=== PATIENT | female | born 1965 | race Caucasian/White ===

== ENCOUNTER 2023-01-05 22:38 | Emergency (ER) | payer OTHER, SELFPAY ==
--- NOTE | 2023-01-05 22:45 | ED.GENADULT ---
HPI - General Adult General Chief complaint: General Medical Stated complaint: SHAKING Time Seen by Provider: 01/05/23 22:45 Source: patient Mode of arrival: EMS Limitations: no limitations History of Present Illness HPI narrative: Patient alcoholic drinks vodka every day came from [facility] which she been there for last 4 days as she been shaking according to patient they were not giving her enough Ativan. Patient denies any history of DTs patient denies any nausea/vomiting no history of seizures in the past no psychiatric history Related Data Allergies Allergy/AdvReac Type Severity Reaction Status Date / Time acetaminophen [From Tylenol] Allergy Hives Verified 01/05/23 23:19 aspirin Allergy Anaphylaxis Verified 01/05/23 23:17 buprenorphine [From Suboxone] Allergy Swelling Verified 01/05/23 23:18 ibuprofen Allergy Hives Verified 01/05/23 23:19 naloxone [From Suboxone] Allergy Swelling Verified 01/05/23 23:18 naltrexone [From Vivitrol] Allergy Angioedema Verified 01/05/23 23:19 Review of Systems Review of Systems: Yes all other systems are reviewed and are negative PMFSH Social History Social History Advance Directives: No Advance Directives Information Provided: Yes Physical Exam ED Vital Signs: Vital Signs - 24 hr 01/05/23 22:48 01/06/23 00:21 01/06/23 01:51 Temperature 99.4 F Pulse Rate 97 91 Respiratory Rate 18 18 18 Blood Pressure 130/88 148/101 H Pulse Oximetry 95 95 Oxygen Delivery Method Room Air Room Air 01/06/23 02:48 01/06/23 05:12 Temperature 99.3 F 98.8 F Pulse Rate 89 78 Respiratory Rate 18 17 Blood Pressure 122/86 120/79 Pulse Oximetry 94 92 Oxygen Delivery Method Room Air Room Air BMI result Body Mass Index 21.1 Appearance: Alert. Oriented X3. No acute distress. Eyes: PERRLA, No Nystagmus ENT: Pharynx normal. Oral Mucosa moist Neck: Normal inspection. Neck supple. CVS: Normal heart rate and rhythm. Pulses normal. Respiratory: No respiratory distress. Equal air entry bilateral, no wheezing/rales/rhonchi Abdomen: Soft and nontender. Bowel sounds are present, no mass palpable, no CVA tenderness Skin: Skin warm and dry. Normal skin color. Normal skin turgor. Extremities: No lower extremity edema. No calf tenderness Neuro: Oriented X 3. No motor deficit. No sensory deficit.No cerebellar signs , cranial nerves II-XII intact tremors++ Medications Administered Discontinued Medications Generic Name Dose Route Start Last Admin Trade Name Darrenq PRN Reason Stop Dose Admin Sodium Chloride 1,000 mls @ 999 mls/hr 01/05/23 23:05 01/06/23 00:40 Ns IV 01/06/23 00:05 Infused .Q1H1M ONE Infusion Magnesium Sulfate 2 gm in 50 mls @ 100 mls/hr 01/06/23 04:48 01/06/23 04:58 Magnesium Sulfate/H2o IV 01/06/23 05:17 100 mls/hr ONCE ONE Administration Lorazepam 2 mg 01/05/23 23:05 01/05/23 23:32 Lorazepam 2 Mg/Ml Vial IVPUSH 01/05/23 23:06 2 mg ONCE ONE Administration Ondansetron HCl 4 mg 01/05/23 23:05 01/05/23 23:32 Ondansetron Hcl 4 Mg/2 Ml Vial IVPUSH 01/05/23 23:06 4 mg ONCE ONE Administration Medical Decision Making Medical Decision Making MDM Narrative: Patient with alcohol withdrawal CIWA scale of 10 improved after Ativan had a magnesium of 1.5 which was replaced. Patient clinically was in alcohol withdrawal medically cleared to go back to detox Lab Data [facility] Lab Attestation statement: I reviewed the patient's lab results. 01/05/23 23:26 01/05/23 23:26 Labs: Lab Results 01/05/23 01/05/23 Range/Units 23:26 23:26 WBC 8.3 (4.8-10.8) X10*3/uL RBC 3.48 L (4.60-5.80) X10*6/uL Hgb 11.5 L (14.0-18.0) g/dl Hct 34.4 L (42.0-52.0) % MCV 98.9 H (80.0-98.0) fL MCH 33.0 (27.0-33.0) pg MCHC 33.4 (31.0-36.0) g/dl RDW 12.5 (11.0-16.0) % Plt Count 206 (160-400) X10*3/uL MPV 9.1 L (9.4-12.4) fL Immature Gran % (Auto) 0.6 H (0.0-0.4) % Neut % (Auto) 78.1 H (45-73) % Lymph % (Auto) 10.1 L (20-40) % Stephenson % (Auto) 9.6 (2-11) % Eos % (Auto) 1.1 (0-4) % Baso % (Auto) 0.5 (0-2) % Lymph # (Auto) 0.8 L (1.2-4.9) X10*3/uL Stephenson # (Auto) 0.8 (0.1-1.2) X10*3/uL Eos # (Auto) 0.1 (0.0-0.4) X10*3/uL Baso # (Auto) 0.0 (0.0-0.2) X10*3/uL Abs Immat Gran (auto) 0.05 H (0.00-0.03) X10*3/uL Absolute Neuts (auto) 6.5 (2.0-8.3) x10*3/uL Absolute Nucleated RBC 0.000 (0.0-0.012) X10*3/uL Nucleated RBC % (auto) 0.0 (0.0-0.2) /100WBC Sodium 136 (135-145) mmol/L Potassium 4.9 (3.3-5.1) mmol/L Chloride 98 (96-108) mmol/L Carbon Dioxide 30 H (22-29) mmol/L Anion Gap 13 (12-20) BUN 15 (9-16) mg/dL Creatinine 0.89 (0.5-1.4) mg/dL Estim Creat Clear Calc 71.3 Estimated GFR > 60 Random Glucose 85 (60-115) mg/dL Calcium 9.4 (8.4-10.2) mg/dL Magnesium 1.5 L (1.6-2.6) mg/dL Total Bilirubin 0.4 (0.0-1.0) mg/dL AST 19 (5-37) U/L ALT 12 (0-40) U/L Alkaline Phosphatase 116 (39-117) U/L Total Protein 6.3 L (6.5-8.0) g/dL Albumin 3.9 (3.5-5.0) g/dL Ethyl Alcohol < 10 mg/dL Discharge Plan Discharge Clinical Impression: Alcohol withdrawal Patient Disposition: Xfer Other Transfer Details: To detox center Instructions: Alcohol Withdrawal (ED) Additional Instructions: Continue lorazepam according to CIWA scale patient medically cleared to be placed in detox
[2023-01-05 22:48] VITALS: BP 124/80; BP 130/88; PULSE 95; PULSE 97; RESP 18; TEMP 37.4; O2SAT 95; O2SAT 96; BMI 21.1
[2023-01-05 23:31] LABS: Basophils Percent Auto 0.5 % (0-2); Eosinophils Absolute Auto 0.1 X10*3/uL (0.0-0.4); Eosinophils Percent Auto 1.1 % (0-4); Hematocrit 34.4 % (42.0-52.0); Hemoglobin 11.5 g/dl (14.0-18.0); Imm Gran Abs Auto 0.05 X10*3/uL (0.00-0.03); Imm Gran Pct Auto 0.6 % (0.0-0.4); Lymphocytes Absolute Auto 0.8 X10*3/uL (1.2-4.9); Lymphocytes Percent Auto 10.1 % (20-40); MANUAL DIFF FLAG NO; Mean Corpuscular HGB Conc 33.4 g/dl (31.0-36.0); Mean Corpuscular Volume 98.9 fL (80.0-98.0); Mean Platelet Volume 9.1 fL (9.4-12.4); Monocytes Absolute Auto 0.8 X10*3/uL (0.1-1.2); Monocytes Percent Auto 9.6 % (2-11); Neutrophils Absolute Auto 6.5 x10*3/uL (2.0-8.3); Neutrophils Percent Auto 78.1 % (45-73); Platelet Count 206 X10*3/uL (160-400); Red Blood Count 3.48 X10*6/uL (4.60-5.80); Red Cell Distribution Width 12.5 % (11.0-16.0); White Blood Count 8.3 X10*3/uL (4.8-10.8)
[2023-01-05] MEDS: LORazepam 2 MG/ML VIAL IVPUSH (23:32)
[2023-01-05] MEDS: ondansetron HCL 4 MG/2 ML VIAL IVPUSH (23:32)
[2023-01-05] MEDS: 0.9 % Sodium Chloride 1,000 ML 999 ML IV (23:37)
[2023-01-05 23:48] LABS: Alanine Aminotransferase 12 U/L (0-40); Albumin Level 3.9 g/dL (3.5-5.0); Alkaline Phosphatase 116 U/L (39-117); Anion Gap 13 (12-20); Aspartate Amino Transferase 19 U/L (5-37); Bilirubin Total 0.4 mg/dL (0.0-1.0); Blood Urea Nitrogen 15 mg/dL (9-16); Calcium 9.4 mg/dL (8.4-10.2); Carbon Dioxide 30 mmol/L (22-29); Chloride 98 mmol/L (96-108); Creatinine Clr Calc Pharmacy 71.3; Estimated Glomerular Filt Rate > 60; Ethanol < 10 mg/dL; Glucose Random 85 mg/dL (60-115); Magnesium 1.5 mg/dL (1.6-2.6); Potassium 4.9 mmol/L (3.3-5.1); Sodium 136 mmol/L (135-145); Total Protein 6.3 g/dL (6.5-8.0)
[2023-01-06] VITALS (7 sets, daily range): BP systolic 108–148; BP diastolic 74–101; PULSE 70–91; RESP 16–20; TEMP 37.1–37.4; O2SAT 92–95
--- OUTSIDE RECORDS SUMMARY | 2023-01-06 00:31 | XMS_ITS | Continuity of Care Document ---
Author Name Unknown Organization [facility] Adult Address [address] [place] [address]- Care Team Providers Care Glove Operator Name Role Phone Shelley MCGEE, Alyssa Miranda Primary Care Physician Encounter [facility] [place] Date(s): 11/08/20 - 11/15/20 [facility] Adult [address] [place] [address]- Encounter Diagnosis Right shoulder pain(Discharge Diagnosis) - 11/08/20 Attending Physician: Alyssa Rosa NP Allergies, Adverse Reactions, Alerts Substance Reaction Severity Status penicillins hives Active sulfa drugs vomiting Active Dilaudid Active Tylenol Rash Active nonsteroidal anti-inflammatory agents tongue swells Active Adhesive Bandage Rash Active Suboxone suboxone Active TraMADol Hydrochloride ER 1 Active 1hives Immunizations Given and Recorded Vaccine Date Status Refusal Reason zoster vaccine, inactivated 06/14/19 Recorded Influenza Virus Vaccine (oldterm) 06/05/19 Recorde d pneumococcal 23-valent vaccine 10/19/18 Given influenza virus vaccine, inactivated 1 06/27/18 Gi iglesia influenza virus vaccine, inactivated 2 07/11/17 Gi iglesia influenza virus vaccine, inactivated 3 07/18/15 Re corded influenza virus vaccine, inactivated 4 07/20/11 Gi iglesia influenza virus vaccine, inactivated 08/27/10 Give n influenza virus vaccine, inactivated 5 07/12/09 Gi iglesia pneumococcal 13-valent vaccine 6 07/11/17 Given tetanus/diphtheria/pertussis, acel(Tdap) 12/21/13 Given diphtheria-tetanus toxoids (DT) 08/29/04 Given [facility] 3Location History: &[facility] 4[facility]: [facility] 5Admin Note: Left arm. - Dr. Griffin 6Admin Note: [facility] Medications cyclobenzaprine 5 mg oral tablet 1 tablet = 5 mg, By Mouth, 3 times a day, for 10 days, # 30 tablet, 0 Refills, Acute 11/18/20 11:28:00 EST, 11/08/20 11:28:00 EST, Tablet, [facility], Partial fill upon patient request if the prescription is for a schedule II opioid eve... Start Date: 11/08/20 Stop Date: 11/18/20 Status: Ordered methadone 5 mg/5 mL oral solution 30 mL = 30 mg, By Mouth, Daily, # 210 mL, 0 Refills, Maintenance, 12/01/18 15:49:03 EST Start Date: 12/01/18 Stop Date: 12/08/18 Status: Ordered Neurontin 600 mg oral tablet 2 tablet = 1,200 mg, By Mouth, 3 times a day, # 180 tablet, 6 Refills, Maintenance, 07/15/20 14:40:00 EDT, Tablet, [facility], 159, cm, 03/20/20 16:15:00 EDT, Height Start Date: 07/15/20 Stop Date: 02/10/21 Status: Ordered Nicotine 7 mg/24 hour patch 1 patch, Topically, Daily, # 30 patch, 2 Refills, Maintenance, 11/30/19 10:45:00 EST, Patch, [facility], 1 patch Topically Daily, 159, cm, 11/30/19 10:21:00 EST, Height Start Date: 11/30/19 Status: Ordered Problem List Condition Effective Dates Status Health Status Inform ant Anemia(Confirmed) Active Anxiety and depression(Confirmed) Active Childhood asthma(Confirmed) Active Fusion of spine of lumbar region(Confirmed) 10/22/05 Active Hernia, hiatal(Confirmed) Active H/o alcohol abuse(Confirmed) Active Hypercholesterolemia(Confirmed) Active Failed back syndrome, lumbosacral(Confirmed) Active Myofascial pain(Confirmed) Active Neck pain(Confirmed) Active Nephrolithiasis(Confirmed) Active Cervical radicular pain(Confirmed) Active Radicular pain of lumbosacra l region(Confirmed) Active S/P cervical spinal fusion(Confirmed) Active Substance abuse(Confirmed) Active Tobacco abuse(Confirmed) Active Urge Incontinence(Confirmed) Active Vitamin D deficiency(Confirmed) Active Diagnosis Diagnosis Type Effective Dates Health Status Cl inical Service Informant Right shoulder pain Discharge Diagnosis 11/08/20 Vital Signs Most recent to oldest [Reference Range]: 1 Height 159 cm (11/08/20 9:32 AM) Social History Social History Type Response Tobacco Use: 4 or less cigar ettes(less than 1/4 pack)/day in last 30 days. Sex
--- OUTSIDE RECORDS SUMMARY | 2023-01-06 00:31 | XMS_ITS | Continuity of Care Document ---
Author Name Unknown Organization [facility] Adult Address [address] [place] [address]- Care Team Providers Care Instrumentation Controls Engineer Name Role Phone Isabela [employer], Paola Monroe Primary Care Physician Encounter [facility] [place] Date(s): 12/12/20 - 01/11/21 [facility] Adult [address] [place] [address]- Attending Physician: Shelley MCGEE, Alyssa Miranda Allergies, Adverse Reactions, Alerts Substance Reaction Severity [...] 2[facility] 3Location History: [facility] 4[facility] Note: [facility] 5Admin Note: Left arm. - Dr. Griffin 6Admin Note: [facility] Medications methadone 5 mg/5 mL oral solution See Instructions, PRN as needed for pain, 85 mg once a day, 0 Refills, Maintenance, 01/09/21 13:23:00 EDT, Solution, Partial fill upon patient request if the prescription is for a schedule II opioid drug. Start Date: 01/09/21 Status: Ordered Neurontin 600 mg oral tablet 1 tablet = 600 mg, By Mouth, 3 times a day, # 1 tablet, 6 Refills, Maintenance, 07/15/20 14:40:00 EDT, Tablet, [facility], 159, cm, 03/20/20 16:15:00 EDT, Height Start Date: 07/15/20 Stop Date: 02/10/21 Status: Ordered Problem List Condition Effective Dates [...] Urge Incontinence(Confirmed) Active Vitamin D deficiency(Confirmed) Active Vital Signs Most recent to oldest [Reference Range]: 1 Height 159 cm (12/12/20 12:29 PM) Social History Social History Type Response Smoking Status 5-9 cigarettes (betw een 1/4 to 1/2 pack)/day in last 30 days entered on: 01/09/21 Sex
--- OUTSIDE RECORDS SUMMARY | 2023-01-06 00:31 | XMS_ITS | Continuity of Care Document ---
Author Name Unknown Organization [facility] Address [address] [place] [address]- Care Team Providers Care Bee Robber Name Role Phone Isabela MCGEE, Paola Monroe Primary Care Physician [place] [facility] [place] Date(s[place] 10/06/21 - 10/13/21 [facility] [address] [place] [address]- Encounter Diagnosis Suspected COVID-19 virus infection(Discharge Diagnosis) - 10/06/21 Viral URI(Discharge Diagnosis) - 10/06/21 Attending Physician: Not on Staff, Attending MD Referring Physician: Paola Mar NP Allergies, Adverse Reactions, Alerts Substance Reaction Severity Status penicillins hives Active sulfa drugs vomiting Active Dilaudid Active Tylenol Rash Active nonsteroidal anti-inflammatory agents tongue swells Active Adhesive Bandage Rash Active Suboxone suboxone Active TraMADol Hydrochloride ER 1 Active 1hives Immunizations Given and Recorded Vaccine Date Status Refusal Reason SARS-CoV-2 (COVID-19) Ad26 vaccine 03/07/21 Record ed influenza virus vaccine, inactivated 05/23/20 Benigno rded influenza virus vaccine, inactivated 1 06/27/18 Gi iglesia influenza virus vaccine, inactivated 2 07/11/17 Gi iglesia influenza virus vaccine, inactivated 3 07/18/15 Re corded influenza virus vaccine, inactivated 4 07/20/11 Gi iglesia influenza virus vaccine, inactivated 08/27/10 Give n influenza virus vaccine, inactivated 5 07/12/09 Gi iglesia zoster vaccine, inactivated 06/14/19 Recorded Influenza Virus Vaccine (oldterm) 06/05/19 Recorde d pneumococcal 23-valent vaccine 10/19/18 Given pneumococcal 13-valent vaccine 6 07/11/17 Given tetanus/diphtheria/pertussis, acel(Tdap) 12/21/13 Given diphtheria-tetanus toxoids (DT) 08/29/04 Given 1[facility] 4[facility] Note: [facility] 5Admin Note: Left arm. - Dr. Griffin 6Admin Note: [facility] Medications amLODIPine 5 mg oral tablet 5 mg, 1, tablet, By Mouth, Daily, # 90 tablet, Refills 0, Tot. Refills 0, Maintenance, 06/30/21 15:11:00 EDT, Route to Pharmacy Electronically, [facility], Partial fill upon patient request if the prescription is for a schedule II opioi... Start Date: 06/30/21 Status: Ordered methadone 5 mg/5 mL oral solution See Instructions, PRN as needed for pain, 85 mg once a day, 0 Refills, Maintenance, 01/09/21 13:23:00 EDT, Solution, Partial fill upon patient request if the prescription is for a schedule II opioid drug. Start Date: 01/09/21 Status: Ordered Neurontin 600 mg oral tablet 1 tablet = 600 mg, By Mouth, 3 times a day, # 90 tablet, 6 Refills, Maintenance, 05/15/21 15:50:00 EDT, Tablet, [facility], 159, cm, 05/15/21 15:47:00 EDT, Height Start Date: 05/15/21 Stop Date: 12/11/21 Status: Ordered Problem List Condition Effective Dates Status Health Status Inform ant Anemia(Confirmed) Active Anxiety and depression(Confirmed) Active Childhood asthma(Confirmed) Active Fusion of spine of lumbar region(Confirmed) 10/22/05 Active Hernia, hiatal(Confirmed) Active H/o alcohol abuse(Confirmed) Active Hypercholesterolemia(Confirmed) Active HTN (hypertension)(Confirmed) Active Failed back syndrome, lumbosacral(Confirmed) Active Mild depression(Confirmed) Active Myofascial pain(Confirmed) Active Neck pain(Confirmed) Active Nephrolithiasis(Confirmed) Active Cervical radicular pain(Confirmed) Active Radicular pain of lumbosacra l region(Confirmed) Active S/P cervical spinal fusion(Confirmed) Active Pain in right shoulder(Confirmed) Active Substance abuse(Confirmed) Active Tobacco abuse(Confirmed) Active Urge Incontinence(Confirmed) Active Vitamin D deficiency(Confirmed) Active Diagnosis Diagnosis Type Effective Dates Health Status Cl inical Service Informant Suspected COVID-19 virus infection Discharge Diagnosis 10/06/21 Viral URI Discharge Diagnosis 10/06/21 Social History Social History Type Response Smoking Status 5-9 cigarettes (betw een 1/4 to 1/2 pack)/day in last 30 days entered on: 01/09/21 Sex
--- OUTSIDE RECORDS SUMMARY | 2023-01-06 00:31 | XMS_ITS | Continuity of Care Document ---
Author Name Unknown Organization [facility] ter Address [address] [place] [address]- Care Team Providers Care Documentation Billing Clerk Name Role Phone Isabela MCGEE, Paola Monroe Primary Care Physician Encounter [facility] Date(s): 02/06/21 - 06/08/[address] [address] Attending Physician: Paola Mar NP Admitting Physician: Isabela MCGEE, Paola Monroe Referring Physician: Isabela MCGEE, Paola Monroe Allergies, Adverse Reactions, Alerts Substance Reaction Severity Status penicillins hives Active sulfa drugs vomiting Active Dilaudid Active Tylenol Rash Active Adhesive Bandage Rash Active Suboxone suboxone Active TraMADol Hydrochloride ER 1 Active nonsteroidal anti-inflammatory agents tongue swells Active 1hives Immunizations Given and Recorded Vaccine [...] 2[facility] 3[facility]: [facility] 4Admin Note: [facility] 5Admin Note: Left arm. - Dr. Girffin 6Admin Note: [facility] Medications amLODIPine 5 mg oral tablet 5 mg, 1, tablet, By Mouth, Daily, # 90 tablet, Refills 1, Tot. Refills 1, Maintenance, 05/15/21 15:49:00 EDT, Route to Pharmacy Electronically, [facility], Partial fill upon patient request if the prescription is for a schedule II opioi... Start Date: 05/15/21 Status: Ordered methadone 5 mg/5 mL oral [...] Maintenance, 05/15/21 15:50:00 EDT, Tablet, [facility], 159, cm, 05/15/21 15:47:00 EDT, Height Start Date: 05/15/21 Stop Date: 12/11/21 Status: Ordered Problem List Condition Effective Dates Status Health Status Inform ant Anemia(Confirmed) Active Anxiety and depression(Confirmed) Active Childhood asthma(Confirmed) Active Fusion of spine of lumbar region(Confirmed) 10/22/05 Active Hernia, hiatal(Confirmed) Active H/o alcohol abuse(Confirmed) Active Hypercholesterolemia(Confirmed) Active HTN (hypertension)(Confirmed) Active Failed back syndrome, lumbosacral(Confirmed) Active Myofascial pain(Confirmed) Active Neck pain(Confirmed) Active Nephrolithiasis(Confirmed) Active Cervical radicular pain(Confirmed) Active Radicular pain of lumbosacra l region(Confirmed) Active S/P cervical spinal fusion(Confirmed) Active Pain in right shoulder(Confirmed) Active Substance abuse(Confirmed) Active Tobacco abuse(Confirmed) Active Urge Incontinence(Confirmed) Active Vitamin D deficiency(Confirmed) Active Social History Social History Type Response Smoking Status 5-9 cigarettes (betw een 1/4 to 1/2 pack)/day in last 30 days entered on: 01/09/21 Sex
--- OUTSIDE RECORDS SUMMARY | 2023-01-06 00:31 | XMS_ITS | Continuity of Care Document ---
Author Name Unknown Organization [facility] Adult Address [address] [place] [address]- Care Team Providers Care Hazmat Tanker Driver Name Role Phone Isabela MCGEE, Paola Monroe Primary Care Physician Encounter [facility] Date(s): 07/17/21 - 08/16/21 [facility] [address] [place] [address]- Attending Physician: AdmModesta villavicencio Allergies, Adverse Reactions, Alerts Substance Reaction Severity [...] 2[facility] 3[facility] 4[facility] Note: [facility] 5Admin Note: Left arm. - Dr. Elias Peña Note: [facility] Medications amLODIPine 5 [...] Maintenance, 05/15/21 15:50:00 EDT, Tablet, [facility], 159, cm, 05/15/21 15:47:00 EDT, [...]
--- OUTSIDE RECORDS SUMMARY | 2023-01-06 00:31 | XMS_ITS | Continuity of Care Document ---
Author Name Unknown Organization [facility] Address [address] [place] [address]- Care Team Providers Care Plaster Form Maker Name Role Phone Alyssa Rosa NP Primary Care Physician Encounter [facility] [place] Date(s): 05/10/20 - 06/09/20 [facility] [address] [place] [address]- [facility] Allergies, Adverse Reactions, Alerts Substance Reaction Severity [...] 2Admin Note[facility] 3Location History: &[facility] 4[facility] Note: [facility] 5Admin Note: Left arm. - Dr. Griffin 6Admin Note: [facility] Medications methadone 5 mg/5 mL oral solution 30 mL = 30 mg, By Mouth, Daily, # 210 mL, 0 Refills, Maintenance, 12/01/18 15:49:03 EST Start Date: 12/01/18 Stop Date: 12/08/18 Status: Ordered Neurontin 600 mg oral tablet 2 tablet = 1,200 mg, By Mouth, 3 times a day, # 180 tablet, 6 Refills, Maintenance, 10/09/19 14:07:00 EST, Tablet, [facility], 159, cm, 04/03/19 10:49:00 EDT, Height Start Date: 10/09/19 Stop Date: 05/06/20 Status: Ordered Nicotine 7 mg/24 hour patch 1 patch, Topically, Daily, # 30 patch, 2 Refills, Maintenance, 11/30/19 10:45:00 EST, Patch, [facility], 1 patch Topically Daily, 159, cm, 11/30/19 10:21:00 EST, Height Start Date: 11/30/19 Status: Ordered PROzac 20 mg oral capsule 20 mg, 1, capsule, By Mouth, Daily, # 30 capsule, Refills 11, Tot. Refills 11, Maintenance, 03/20/20 16:11:00 EDT, Route to Pharmacy Electronically, [facility], 159, cm, 03/20/20 15:53:00 EDT, Height Start Date: 03/20/20 Stop Date: 03/15/21 Status: Ordered Problem List Condition Effective Dates [...] Active Social History Social History Type Response Tobacco Use: 4 or less cigar ettes(less than 1/4 pack)/day in last 30 days. Sex
--- OUTSIDE RECORDS SUMMARY | 2023-01-06 00:31 | XMS_ITS | Continuity of Care Document ---
Author Name Unknown Organization [facility] Adult Address [address] [place] [address]- Care Team Providers Care Quality Assurance Advisor Name Role Phone Shelley MCGEE, Alyssa Miranda Primary Care Physician [place] [facility] [place](s): 09/08/19 - 01/06/20 [facility] [address] [place] [address]- [facility] Attending Physician: Corey Griffin MD Allergies, Adverse Reactions, Alerts Substance Reaction Severity [...] 2[facility] Note[facility] 3[facility] 4[facility] Note: [facility] 5Admin Note: [...] History Social History Type Response Smoking Status Current every day sm lakisha; Type: Cigarettes; Tobacco use times per day: 1/2 ppd; entered on: 10/22/16 Sex
--- OUTSIDE RECORDS SUMMARY | 2023-01-06 00:31 | XMS_ITS | Continuity of Care Document ---
Author Name Unknown Organization [facility] Address [address] [place] [address]- Care Team Providers Care Energy Consultant Name Role Phone Isabela MCGEE, Paola Monroe Primary Care Physician En[place] [facility] [place] Date(s): 07/04/21 - 08/03/21 [facility] [address] [place] [address]- Attending Physician: Modesta Marcus Admitting Physician: Admtr, Modesta Referring Physician: Admtr, ArCalvin Allergies, Adverse Reactions, Alerts Substance Reaction Severity Status penicillins hives Active sulfa drugs vomiting Active Dilaudid Active TraMADol Hydrochloride ER 1 Active Suboxone suboxone Active Tylenol Rash Active Adhesive Bandage Rash Active nonsteroidal anti-inflammatory agents tongue swells [...] 2Admin Note[facility] 3[facility] 4[facility] Note: [facility] 5Admin Note: [...] II opioi... Start Date: 06/30/21 Status: Ordered hydrOXYzine hydrochloride 25 mg oral tablet See Instructions, 1 tablet By Mouth at bedtime, # 30 tablet, 1 Refills, Maintenance, 06/30/21 15:11:00 EDT, [facility], Partial fill upon patient request if the prescription is fora schedule II opioid drug., 159, cm, 06/30/21 15:05:00... Start Date: 06/30/21 Status: Ordered methadone 5 [...] Maintenance, 05/15/21 15:50:00 EDT, Tablet, [facility], 159, cm, 05/15/21 15:47:00 EDT, [...]
--- OUTSIDE RECORDS SUMMARY | 2023-01-06 00:31 | XMS_ITS | Continuity of Care Document ---
Author Name Unknown Organization [facility] Adult Address [address] [place] [address]- Care Team Providers Care Wood Planer Name Role Phone Shelley MCGEE, Alyssa Miranda Primary Care Physician [place] [facility] [place]s): 10/25/20 - 11/24/20 [facility] [address] [place] [address]- Allergies, Adverse Reactions, Alerts Substance Reaction Severity [...] 2[facility] Note[facility] 3Location History: &[facility] 4[facility] 5Admin [...]
--- OUTSIDE RECORDS SUMMARY | 2023-01-06 00:31 | XMS_ITS | Continuity of Care Document ---
Author Name Unknown Organization [facility] ter Address [address] [place] [address]- Care Team Providers Care Cement Mason Maintenance Name Role Phone Isabela MCGEE, Paola Monroe Primary Care Physician Encounter [facility] Date(s): 08/06/21 - 09/17/[address] [address] Attending Physician: Claudio Sánchez MD Admitting Physician: Claudio Sánchez MD Referring Physician: Claudio Sánchez MD Allergies, Adverse Reactions, Alerts Substance Reaction [...] 23-valent vaccine 10/19/18 Given pneumococcal 13-valent vaccine 07/11/17 Given tetanus/diphtheria/pertussis, acel(Tdap) 12/21/13 Given diphtheria-tetanus toxoids (DT) 08/29/04 Given 1[facility] 4[facility] 5Admin Note: Left [...] pack)/day in last 30 days entered on: 4/15/21 Sex
--- OUTSIDE RECORDS SUMMARY | 2023-01-06 00:31 | XMS_ITS | Continuity of Care Document ---
Author Name Unknown Organization [facility] Address [address] [place] [address]- Care Team Providers Care Director Quality Systems Name Role Phone Shelley MCGEE, Alyssa Miranda Primary Care Physician [place] [facility] [place] - 12/18/20 [facility] [address] [place] [address]- Encounter Diagnosis Shoulder pain(Discharge Diagnosis) - 12/11/20 Attending Physician: Alyssa Rosa NP Allergies, Adverse [...] 2Admin Note: [facility] 3Location History: &[facility] 4Admin Note: [facility] 5Admin Note: Left [...] Dates Health Status Cl inical Service Informant Shoulder pain Discharge Diagnosis 12/11/20 Vital Signs Most recent to oldest [Reference Range]: 1 Height 159 cm (12/11/20 11:20 AM) Social History Social History Type Response Tobacco Use: 4 or less cigar ettes(less than 1/4 pack)/day in last 30 days. Sex
--- OUTSIDE RECORDS SUMMARY | 2023-01-06 00:31 | XMS_ITS | Continuity of Care Document ---
Author Name Unknown Organization [facility] Address [address] [place] [address]- Care Team Providers Care Branding Specialist Name Role Phone Isabela MCGEE, Paola Monroe Primary Care Physician Encounter [facility] Date(s): 10/06/21 - 11/05/21 [facility] [address] [place] [address]- Attending Physician: Modesta Marcus Admitting Physician: Admtr, [id number] Referring Physician: Admtr, Ar8 Allergies, Adverse Reactions, Alerts Substance Reaction Severity [...] 2Admin Note: [facility] 3[facility] History: [facility] 4Admin Note: [...]
--- OUTSIDE RECORDS SUMMARY | 2023-01-06 00:31 | XMS_ITS | Continuity of Care Document ---
Author Name Unknown Organization [facility] Address [address] [place] [address]- Care Team Providers Care Recreational Therapy Technician Name Role Phone Isabela MCGEE, Paola Monroe Primary Care Physician Encounter [facility] Date(s): 08/06/21 - 09/05/21 [facility] [address] [place] [address]- Allergies, Adverse Reactions, Alerts Substance Reaction Severity [...] 2Admin Note: [facility] 3[facility] History: [facility] 4Admin Note: [facility] 5Admin Note: Left arm. - Dr. Elias Peña Note: [employer] Medications amLODIPine 5 mg oral tablet 5 mg, 1, tablet, By Mouth, Daily, # 90 tablet, Refills 0, Tot. Refills 0, Maintenance, 06/30/21 15:11:00 EDT, Route to Pharmacy Electronically, [id number], Partial fill upon patient request [...] 6 Refills, Maintenance, 05/15/21 15:50:00 EDT, Tablet, [id number], 159, cm, 05/15/21 15:47:00 EDT, [...]
--- OUTSIDE RECORDS SUMMARY | 2023-01-06 00:31 | XMS_ITS | Continuity of Care Document ---
Author Name Unknown Organization [facility] Address [address] [place] [address]- Care Team Providers Care Yam Curer Name Role Phone Alsysa Rosa NP Primary Care Physician Encounter [facility] [place] Date(s): 12/07/19 - 12/17/19 [facility] [address] [place] [address]- [facility] Attending Physician: Admtr, Ar8 Allergies, Adverse Reactions, Alerts [...] Type Response Smoking Status Current every day fernando banuelos; Type: Cigarettes; Tobacco use times per day: 1/2 ppd; entered on: 10/22/16 Sex
--- OUTSIDE RECORDS SUMMARY | 2023-01-06 00:31 | XMS_ITS | Continuity of Care Document ---
Author Name Unknown Organization [facility] Address [address] [place] [address]- Care Team Providers Care Feed Mill Operator Name Role Phone Isabela MCGEE, Paola Monroe Primary Care Physician Encounter [facility] [place] Date(s): 09/10/20 - 01/08/21 [facility] [address] [place] [address]- Attending Physician: Shelley MCGEE, Alyssa Miranda Allergies, [...] 2Admin Note: [facility] 3Location History: &[facility] 4Admin Note: [facility] 5Admin Note: [...]
--- OUTSIDE RECORDS SUMMARY | 2023-01-06 00:31 | XMS_ITS | Continuity of Care Document ---
Author Name Unknown Organization [facility] Address [address] [place] [address]- Care Team Providers Care Hospital Admissions Officer Name Role Phone Isabela MCGEE, Paola Monroe Primary Care Physician Encounter [facility] [place] Date(s): 12/11/20 - 01/11/21 [facility] [address] [place] [address]- Attending Physician: Not on Staff, Attending MD Allergies, Adverse Reactions, Alerts Substance Reaction Severity Status sulfa drugs vomiting Active TraMADol Hydrochloride ER 1 Active Suboxone suboxone Active penicillins hives Active Dilaudid Active Tylenol Rash Active Adhesive [...] 2Admin Note: [facility] 3Location History: [facility] 4Admin Note: [facility] 5Admin [...]
--- OUTSIDE RECORDS SUMMARY | 2023-01-06 00:31 | XMS_ITS | Continuity of Care Document ---
Author Name Unknown Organization [facility] Address [address] [place] [address]- Care Team Providers Care Wind Tunnel Mechanic Name Role Phone Alyssa Rosa NP Primary Care Physician Encounter [facility] Date(s): 03/20/20 - 03/27/20 [facility] [address] [place] [address]- [facility] Encounter Diagnosis Leg pain(Discharge Diagnosis) - 03/20/20 Buttock pain(Discharge Diagnosis) - 03/20/20 Attending Physician: Alyssa Rosa NP Allergies, Adverse [...] EDT, Route to Pharmacy Electronically, [id number], 159, cm, 03/20/20 15:53:00 EDT, [...] Dates Health Status Cl inical Service Informant Leg pain Discharge Diagnosis 03/20/20 Buttock pain Discharge Diagnosis 03/20/20 Vital Signs Most recent to oldest [Reference Range]: 1 2 Height 159 cm (03/20/20 4:15 PM) 159 cm (03/20/20 3:53 PM) Weight 51.2 kg (03/20/20 3:53 PM) Body Mass Index [18.5-24.99] 20.25 (03/20/20 3:53 PM) Blood Pressure [90-138/55-84 mm Hg] 138/ 82mm Hg (03/20/20 4:15 PM) 150/92mm Hg *H* (03/20/20 3:53 PM) Temperature [96.8-100.4 DegF] 98.2 DegF (03/20/20 3:53 PM) Blood pressure sites Arm, left (03/20/20 4:15 PM) Arm, right (03/20/20 3:53 PM) Temperature Route Oral (03/20/20 3:53 PM) Social History Social History Type Response Tobacco Use: 4 or less cigar ettes(less than 1/4 pack)/day in last 30 days. Sex
--- OUTSIDE RECORDS SUMMARY | 2023-01-06 00:31 | XMS_ITS | Continuity of Care Document ---
Author Name Unknown Organization [facility] Address [address] [place] [address]- Care Team Providers Care Fire Control Technician G Name Role Phone Isabela MCGEE, Paola Monroe Primary Care Physician Encounter [facility] Date(s): 07/04/21 - 04/09/22 [facility] [address] [place] [address]- Discharge Disposition: A-D/C Home Attending Physician: Gonzalo JONES, Claudio Liang Admitting Physician: Claudio Sánchez MD Referring Physician: Isabela MCGEE, Paola Monroe Allergies, Adverse Reactions, Alerts Substance Reaction Severity Status TraMADol Hydrochloride ER 1 Active Suboxone suboxone Active penicillins hives Active sulfa drugs vomiting Active Dilaudid Active Tylenol Rash Active Adhesive Bandage Rash Active nonsteroidal anti-inflammatory agents tongue swells Active 1hives Immunizations Given and Recorded Vaccine Date Status Refusal Reason SARS-CoV-2 (COVID-19) mRNA-1273 vaccine 11/12/21 R ecorded tetanus/diphtheria/pertussis, acel(Tdap) 08/10/21 Recorded tetanus/diphtheria/pertussis, acel(Tdap) 12/21/13 Given SARS-CoV-2 (COVID-19) Ad26 vaccine 03/07/21 Record ed [...] inactivated 06/14/19 Recorded Influenza Virus Vaccine (oldterm) 9/9/19 Recorde d pneumococcal 23-valent vaccine 10/19/18 Given pneumococcal 13-valent vaccine 6 07/11/17 Given diphtheria-tetanus toxoids (DT) 08/29/04 Given 1Admin Note: [facility] 2Admin Note: [facility] 3[facility] History: [facility] 4Admin Note: [facility] 5Admin Note: Left arm. - Dr. Griffin 6Admin Note: [facility] Medications amLODIPine 5 mg oral tablet 5 mg, 1, tablet, By Mouth, Daily, # 90 tablet, Refills 0, Tot. Refills 0, Maintenance, 03/25/22 7:47:00 EDT, Route to Pharmacy Electronically, [id number], Partial fill upon patientrequest if the prescription is for a schedule II opioid... Start Date: 03/25/22 Status: Ordered LORazepam 0.5 mg oral tablet See Instructions, 1 tablet By Mouth 30 mins prior to flying, # 5 tablet, 0 Refills, Maintenance, 11/26/21 16:38:00 EST, [id number], Partial fill upon patient request if the prescription is for a schedule II opioid drug., 157.7, cm, 08/27... Start Date: 11/26/21 Status: Ordered Methadone 0 Refills, Maintenance, 01/13/22 16:53:00 EDT, Partial fill upon patient request if the prescription is for a schedule II opioid drug. Start Date: 01/13/22 Status: Ordered Neurontin 600 mg oral tablet 1 tablet = 600 mg, By Mouth, 3 times a day, # 90 tablet, 0 Refills, Maintenance, 04/08/22 15:05:00 EDT, Tablet, [id number], 157.7, cm, 03/09/22 8:49:00 EDT, Height, 59.9, kg, 09/10/21 9:51:00 EST, Dry Weight Start Date: 04/08/22 Status: Ordered omeprazole 20 mg oral enteric coated capsule See Instructions, TAKE ONE CAPSULE BY MOUTH TWICE A DAY, # 60 capsule, 1 Refills, [id number], 157.7, cm, 03/09/22 8:49:00 EDT, Height, 59.9, kg, 09/10/21 9:51:00 EST, Dry Weight Start Date: 04/07/22 Status: Ordered omeprazole 20 mg oral enteric coated capsule 1 capsule = 20 mg, By Mouth, 2 times a day, # 60 capsule, 1 Refills, Maintenance, 04/07/22 12:45:00EDT, EC Capsule, [id number], Partial fill upon patient request if the prescription is for a schedule II opioid drug., 157.7, cm, ... Start Date: 04/07/22 Status: Ordered Problem List Condition Effective Dates [...] to oldest [Reference Range]: 1 2 Height 157.7 cm (09/10/21 9:51 AM) 157.7 cm (08/06/21 9:15 AM) Weight 59.9 kg (09/10/21 9:51 AM) 57.7 kg (08/06/21 9:15 AM) Pulse Rate [55-90 bpm] 87 bpm (09/10/21 9:51 AM) 88 bpm (08/06/21 9:15 AM) Body Mass Index [18.5-24.99] 24.09 (09/10/21 9:51 AM) 23.2 (08/06/21 9:15 AM) Blood Pressure [90-138/55-84 mm Hg] 134/ 80mm Hg (09/10/21 9:51 AM) 141/91mm Hg *H* (08/06/21 9:15 AM) Temperature [96.8-100.4 DegF] 97.7 DegF (09/10/21 9:51 AM) 97.6 DegF (08/06/21 9:15 AM) Blood pressure sites Arm, left (09/10/21 9:51 AM) Arm, left (08/06/21 9:15 AM) Temperature Route Temporal (09/10/21 9:51 AM) Temporal (08/06/21 9:15 AM) Dry Weight 59.9 kg (09/10/21 9:51 AM) 57.7 kg (08/06/21 9:15 AM) Weight Obtained Via Standing scale (09/10/21 9:51 AM) Standing scale (08/06/21 9:15 AM) Dry Weight Obtained Via Standing scale (09/10/21 9:51 AM) Standing scale (08/06/21 9:15 AM) Social History Social History Type Response Smoking Status 5-9 cigarettes (betw een 1/4 to 1/2 pack)/day in last 30 days entered on: 01/09/21 Sex
--- OUTSIDE RECORDS SUMMARY | 2023-01-06 00:31 | XMS_ITS | Continuity of Care Document ---
Author Name Unknown Organization [facility] Address [address] [place] [address]- Care Team Providers Care Dining Room Server Name Role Phone Isabela MCGEE, Paola Monroe Primary Care Physician Encounter [facility] Date(s): 12/29/21 - 01/28/22 [facility] [address] [place] [address]- Attending Physician: Modesta Marcus Admitting Physician: Modesta Marcus Referring Physician: Modesta Marcus Allergies, Adverse Reactions, Alerts Substance Reaction Severity Status TraMADol Hydrochloride ER 1 Active penicillins hives Active sulfa drugs vomiting Active Dilaudid Active Tylenol Rash Active Adhesive Bandage Rash Active nonsteroidal anti-inflammatory agents tongue swells Active Suboxone suboxone Active 1hives Immunizations Given and Recorded Vaccine [...] 2Admin Note: [facility] 3Location History: [facility] 4Admin Note: [facility] [...] II opioi... Start Date: 06/30/21 Status: Ordered LORazepam 0.5 mg oral tablet [...] 3 times a day, # 90 tablet, 1 Refills, Maintenance, 01/28/22 12:00:00 EDT, Tablet, [facility], 157.7, cm, 01/13/22 16:21:00 EDT, Height, 59.9, kg, 09/10/21 9:51:00 EST, Dry Weight Start Date: 01/28/22 Status: Ordered omeprazole 20 mg oral enteric coated capsule 1 capsule = 20 mg, By Mouth, 2 times a day, # 60 capsule, 0 Refills, Maintenance, 01/13/22 16:45:00EDT, EC Capsule, [facility], Partial fill upon patient request if the prescription is for a schedule II opioid drug., 157.7, cm, ... Start Date: 01/13/22 Status: Ordered Problem List Condition Effective Dates [...]
--- OUTSIDE RECORDS SUMMARY | 2023-01-06 00:32 | XMS_ITS | Continuity of Care Document ---
Author Name Unknown Organization [facility] Address [address] [place] [address]- Care Team Providers Care Rfid Manager Name Role Phone Isabela MCGEE, Paola Monroe Primary Care Physician Encounter [facility] [place] Date(s): 12/12/20 - 01/11/21 [facility] [address] [place] [address]- Attending Physician: Admtr, Ar8 Allergies, Adverse Reactions, [...] 2Admin Note: [facility] 3[facility] History: [facility] 4Admin Note: [facility] 5Admin Note: [...]
--- OUTSIDE RECORDS SUMMARY | 2023-01-06 00:32 | XMS_ITS | Continuity of Care Document ---
Author Name Unknown Organization [facility] Address [address] [place] [address]- Care Team Providers Care Ship'S Carpenter Name Role Phone Alyssa Rosa NP Primary Care Physician [place] [facility] 05/07/20 - 06/06/20 [facility] [address] [place] [address]- [facility] Allergies, Adverse Reactions, Alerts Substance Reaction Severity [...] 2Admin Note: [facility] 3Location History: &[facility] 4Admin Note: [facility] 5Admin Note: [...] EDT, Route to Pharmacy Electronically, [id number], 159, cm, 03/20/20 15:53:00 EDT, [...]
--- OUTSIDE RECORDS SUMMARY | 2023-01-06 00:32 | XMS_ITS | Continuity of Care Document ---
Author Name Unknown Organization [facility] Address [address] [place] [address]- Care Team Providers Care Player Piano Technician Name Role Phone Shelley MCGEE, Alyssa Miranda Primary Care Physician [place] [facility] [place]): [place]09[place]20 - 09/16/20 [facility] [address] [place] [address]- Encounter Diagnosis Pneumonia(Discharge Diagnosis) - 09/09/20 Attending Physician: Alyssa Rosa NP Allergies, Adverse [...] 2Admin Note: [facility] 3[facility] History: [facility] 4Admin Note: [facility] 5Admin Note: Left [...] Diagnosis Diagnosis Type Effective Dates Health Status Clini robbie Service Informant Pneumonia Discharge Diagnosis 09/09/20 Social History Social History Type Response Tobacco Use: 4 or less cigar ettes(less than 1/4 pack)/day in last 30 days. Sex
--- OUTSIDE RECORDS SUMMARY | 2023-01-06 00:32 | XMS_ITS | Continuity of Care Document ---
Author Name Unknown Organization [facility] Address [address] [place] [address]- Care Team Providers Care Yeast Cake Cutter Name Role Phone Alyssa Rosa NP Primary Care Physician Encounter [facility] [place] Date(s): 10/10/19 - 10/20/19 [facility] [address] [place] [address]- [facility] Attending Physician: Admtr, Ar8 Allergies, Adverse Reactions, [...] Griffin 6Admin Note: [facility] Medications albuterol 0.083% inhalation solution 3 mL = 2.5 mg, Inhalation, Every 6 hours, PRN for wheezing, # 25 each, 3 Refills, Maintenance, 10/28/16 13:10:05, Solution Start Date: 10/28/16 Status: Ordered methadone 5 mg/5 mL oral [...] Date: 10/09/19 Stop Date: 05/06/20 Status: Ordered Nicoderm C-Q 7 mg/24 hr transdermal film, extended release 1 patch, By Mouth, Daily, # 30 patch, 1 Refills, Maintenance, 04/03/19 11:19:15 EDT Start Date: 04/03/19 Stop Date: 06/02/19 Status: Ordered Shingrix intramuscular injection 0.5 mL, Intramuscular, Once, # 0.5 mL, 1 Refills, Soft Stop, 12/01/18 15:53:25 EST, 0.5 mL Intramuscular Once Start Date: 12/01/18 Status: Ordered Problem List Condition Effective Dates Status Health Status Inform ant Anemia(Confirmed) Active Anxiety and depression(Confirmed) Active Childhood asthma(Confirmed) Active Fusion of spine of lumbar region(Confirmed) 10/22/05 Active Hernia, hiatal(Confirmed) Active H/o alcohol abuse(Confirmed) Active Failed back syndrome, lumbosacral(Confirmed) Active Myofascial pain(Confirmed) Active Neck pain(Confirmed) Active Nephrolithiasis(Confirmed) Active Cervical radicular pain(Confirmed) Active Radicular pain of lumbosacra l region(Confirmed) Active S/P cervical spinal fusion(Confirmed) Active Substance abuse(Confirmed) Active Tobacco abuse(Confirmed) Active Urge Incontinence(Confirmed) Active Social History Social History Type Response Smoking Status Current every day sm oker; Type: Cigarettes; Tobacco use times per day: 1/2 ppd; entered on: 10/22/16 Sex
--- OUTSIDE RECORDS SUMMARY | 2023-01-06 00:32 | XMS_ITS | Continuity of Care Document ---
Author Name Unknown Organization [facility] Address [address] [place] [address]- Care Team Providers Care Sulfate Drier Machine Operator Name Role Phone Shelley MCGEE, Alyssa Miranda Primary Care Physician [place] [facility] [place] 11/07/20 - 12/07/20 [facility] [address] [place] [address]- Allergies, Adverse Reactions, Alerts Substance Reaction Severity [...]
--- OUTSIDE RECORDS SUMMARY | 2023-01-06 00:32 | XMS_ITS | Continuity of Care Document ---
Author Name Unknown Organization [facility] Address [address] [place] [address]- Care Team Providers Care Registered Phlebotomist Part Time Name Role Phone Alyssa Rosa NP Primary Care Physician [place] [facility] 03/20[place]20 - 04/19/20 [facility] [address] [place] [address]- [facility] Attending Physician: Admtr, Ar8 Allergies, Adverse Reactions, [...] EDT, Route to Pharmacy Electronically, [id number], 159, cm, 03/20/20 15:53:00 EDT, [...]
--- OUTSIDE RECORDS SUMMARY | 2023-01-06 00:32 | XMS_ITS | Continuity of Care Document ---
Author Name Unknown Organization [facility] ter Address [address] [place] [id number]- Care Team Providers Care Restaurant Kitchen Manager Name Role Phone Isabela MCGEE, Paola Monroe Primary Care Physician Encounter [facility] Date(s): 07/07/22 - 08/21/[address] [address] Attending Physician: Paola Mar NP Admitting Physician: Paola Mar NP Referring Physician: Isabela MCGEE, Paola Monroe Allergies, Adverse Reactions, Alerts Substance Reaction Severity Status penicillins hives Active TraMADol Hydrochloride ER 1 Active Suboxone suboxone Active sulfa drugs vomiting Active Dilaudid Active Tylenol Rash Active Adhesive Bandage Rash Active nonsteroidal anti-inflammatory agents tongue swells Active 1hives Immunizations Given and Recorded Vaccine Date Status Refusal Reason [id number] bivalent booster vax 07/01/22 Recorded influenza virus vaccine, inactivated 06/11/22 Benigno rded influenza virus vaccine, inactivated 05/23/20 Benigno rded influenza virus vaccine, inactivated 1 06/27/18 Gi iglesia influenza virus vaccine, inactivated 2 07/11/17 Gi iglesia influenza virus vaccine, inactivated 3 07/18/15 Re corded influenza virus vaccine, inactivated 4 07/20/11 Gi iglesia influenza virus vaccine, inactivated 08/27/10 Give n influenza virus vaccine, inactivated 5 07/12/09 Gi iglesia SARS-CoV-2 (COVID-19) mRNA-1273 vaccine 04/26/22 R ecorded SARS-CoV-2 (COVID-19) mRNA-1273 vaccine 11/12/21 R ecorded tetanus/diphtheria/pertussis, acel(Tdap) 08/10/21 Recorded tetanus/diphtheria/pertussis, acel(Tdap) 12/21/13 Given SARS-CoV-2 (COVID-19) Ad26 vaccine 03/07/21 Record ed zoster vaccine, inactivated 06/14/19 Recorded Influenza Virus [...] shop Medications amLODIPine 5 mg oral tablet See Instructions, TAKE ONE TABLET BY MOUTH EVERY DAY, # 90 tablet, 0 Refills, Maintenance, 06/10/2212:53:00 EDT, [facility], 160, cm, 05/27/22 11:09:00 EDT, Height, 51.4, kg, 05/04/22 8:49:00 EDT, Dry Weight Start Date: 06/10/22 Status: Ordered amLODIPine 5 mg oral tablet 10 mg, 2, tablet, By Mouth, Daily, # 180 tablet, Refills 0, Tot. Refills 0, Maintenance, 06/16/22 12:10:00 EDT, Route to Pharmacy Electronically, [id number], Partial fill upon patient request if the prescription is for a schedule II opi... Start Date: 06/16/22 Status: Ordered Diflucan 50 mg oral tablet 1 tablet = 50 mg, By Mouth, Daily, # 10 tablet, 0 Refills, Maintenance, 05/10/22 19:07:00 EDT, Tablet, [facility], Partial fill upon patient request if the prescription is for a schedule II opioid drug., 160, cm, 05/04/22 8:49:00 EDT, H... Start Date: 05/10/22 Stop Date: 05/20/22 Status: Ordered FLUoxetine 20 mg oral tablet 1 tablet = 20 mg, By Mouth, Daily, # 30 tablet, 2 Refills, Maintenance, 07/07/22 12:47:00 EDT, Tablet, [facility], Partial fill upon patient request if the prescription is for a schedule II opioid drug., 160, cm, 07/07/22 12:35:00 EDT,... Start Date: 07/07/22 Status: Ordered Methadone = 85 mg, By Mouth, Daily, 0 Refills, Maintenance, 01/13/22 16:53:00 EDT, Partial fill upon patient request if the prescription is for a schedule II opioid drug. Start Date: 01/13/22 Status: Ordered Neurontin 600 mg oral tablet 1 tablet = 600 mg, By Mouth, 3 times a day, # 90 tablet, 1 Refills, Maintenance, 06/16/22 12:11:00 EDT, Tablet, [facility], 160, cm, 05/27/22 11:09:00 EDT, Height, 51.4, kg, 05/04/22 8:49:00 EDT, Dry Weight Start Date: 06/16/22 Status: Ordered omeprazole 20 mg oral enteric coated capsule 1 capsule, By Mouth, 2 times a day, # 60 capsule, 2 Refills, Maintenance, 08/11/22 14:23:00 EST, [facility], 160, cm, 07/07/22 12:49:00 EDT, Height, 51.4, kg, 05/04/22 8:49:00 EDT,Dry Weight Start Date: 08/11/22 Status: Ordered ondansetron 4 mg oral tablet 1 tablet = 4 mg, By Mouth, Every 8 hours, PRN Vomiting, # 30 tablet, 0 Refills, Maintenance, 08/11/22 16:58:00 EST, Tablet, [facility], Partial fill upon patient request if the prescription is for a schedule II opioid drug., 160, cm, 10... Start Date: 08/11/22 Status: Ordered Problem List Condition Confirmation Course Effective Dates Status Health Status Informant Anemia Confirmed Active Anxiety and depression Confirmed Active Childhood asthma Confirmed Active Fusion of spine of lumbar region Confirmed 10/22/05 Active Hernia, hiatal Confirmed Active H/o alcohol abuse Confirmed Active Hypercholesterolemia Confirmed Active HTN (hypertension) Confirmed Active Failed back syndrome, lumbosacral Confirmed Active Mild depression Confirmed Active Myofascial pain Confirmed Active Neck pain Confirmed Active Nephrolithiasis Confirmed Active Cervical radicular pain Confirmed Active Radicular pain of lumbosacral region Confirmed Active S/P cervical spinal fusion Confirmed Active Pain in right shoulder Confirmed Active Substance abuse Confirmed Active Tobacco abuse Confirmed Active Urge Incontinence Confirmed Active Vitamin D deficiency Confirmed Active Social History Social History Type Response Smoking Status 5-9 cigarettes (betw een 1/4 to 1/2 pack)/day in last 30 days entered on: 01/09/21 Sex Patient Care team information Care Team Personnel Name: Paola Mar NP Position: [facility] PCO Associate Professional Member Role: PCP Address: Address: [address] [place] [address] [place] [address]- Name: Judy Baugh Position: [facility] Onco RN Member Role: Primary Care Nurse Name: Alesha Mathis RN Position: [facility] RN Member Role: Primary Care Nurse Name: Ethel Sunshine MD Position: [facility] WOOD CASKET ASSEMBLER MD Member Role: Lifetime WOOD CASKET ASSEMBLER Physician Address: Address: [address] [place] [address]'s [facility] [place] [address]- Care Team Related Persons Name: RADHA ZAMARRIPA Name: TED ZAMARRIPA Address: home [address] [place] [address]
--- OUTSIDE RECORDS SUMMARY | 2023-01-06 00:32 | XMS_ITS | Continuity of Care Document ---
Author Name Unknown Organization [facility] Adult Address [address] [place] [address]- Care Team Providers Care Manager Sharepoint Name Role Phone Shelley MCGEE, Alyssa Miranda Primary Care Physician Encounter [facility] Date(s): 09/05/20 - 10/05/20 [facility] Adult [address] [place] [address]- Allergies, Adverse Reactions, Alerts Substance Reaction Severity [...] 2[facility] 3Location History: &[facility] 4Admin Note: [facility] 5Admin Note: [...]
--- OUTSIDE RECORDS SUMMARY | 2023-01-06 00:33 | XMS_ITS | Continuity of Care Document ---
Author Name Unknown Organization [facility] Adult Address [address] [place] [address]- Care Team Providers Care Delivery Of Shopping News Name Role Phone Shelley MCGEE, Alyssa Miranda Primary Care Physician Encounter [facility] Date(s): 12/07/19 - 12/14/19 [facility] [address] [place] [address]- [facility] Encounter Diagnosis Tobacco abuse(Discharge Diagnosis) - 12/07/19 Vitamin D deficiency(Discharge Diagnosis) - 12/07/19 Myofascial pain(Discharge Diagnosis) - 12/07/19 Cervical radicular pain(Discharge Diagnosis) - 12/07/19 Failed back syndrome, lumbosacral(Discharge Diagnosis) - 12/07/19 Anxiety and depression(Discharge Diagnosis) - 12/07/19 Fusion of spine of lumbar region(Discharge Diagnosis) - 12/07/19 Anemia(Discharge Diagnosis) - 12/07/19 Attending Physician: Alyssa Rosa NP Referring Physician: Lizzie JONES, [facility] Allergies, Adverse Reactions, Alerts Substance Reaction Severity [...] 2[facility] Note[facility] 3[facility]: [facility] 4Admin Note: [facility] 5Admin Note: [...] Diagnosis Diagnosis Type Effective Dates Health Status Clinical Service Informant Anemia Discharge Diagnosis 12/07/19 Anxiety and depression Discharge Diagnosis 12/07/19 Cervical radicular pain Discharge Diagnosis 12/07/19 Failed back syndrome, lumbosacral Discharge Diagnosis 12/07/19 Fusion of spine of lumbar region Discharge Diagnosis 12/07/19 Myofascial pain Discharge Diagnosis 12/07/19 Tobacco abuse Discharge Diagnosis 12/07/19 Vitamin D deficiency Discharge Diagnosis 12/07/19 Vital Signs Most recent to oldest [Reference Range]: 1 2 Height 159 cm (12/07/19 4:28 PM) 159 cm (12/07/19 3:57 PM) Weight 50.9 kg (12/07/19 3:57 PM) Oxygen Saturation [94-100 %] 96 % (12/07/19 3:57 PM) Pulse Rate [55-90 bpm] 90 bpm (12/07/19 3:57 PM) Body Mass Index [18.5-24.99] 20.13 (12/07/19 3:57 PM) Blood Pressure [90-138/55-84 mm Hg] 128/ 72mm Hg (12/07/19 4:28 PM) 126/80mm Hg (12/07/19 3:57 PM) Temperature [96.8-100.4 DegF] 98.2 DegF (12/07/19 3:57 PM) Mode of Delivery (Oxygen) Room air (12/07/19 3:57 PM) Blood pressure sites Arm, left (12/07/19 4:28 PM) Arm, right (12/07/19 3:57 PM) Temperature Route Oral (12/07/19 3:57 PM) Weight Obtained Via Standing scale (12/07/19 3:57 PM) Social History Social History Type Response Smoking Status Current every day fernando banuelos; Type: Cigarettes; Tobacco use times per day: 1/2 ppd; entered on: 10/22/16 Sex
--- OUTSIDE RECORDS SUMMARY | 2023-01-06 00:33 | XMS_ITS | Continuity of Care Document ---
Author Name Unknown Organization [facility] Adult Address [address] [place] [address]- Care Team Providers Care Skilled Nursing Case Manager Name Role Phone Shelley MCGEE, Alyssa Miranda Primary Care Physician En[place] [facility] Date(s): 02/28/20 - 03/06/20 [facility] Adult [address] [place] [address]- [facility] Encounter Diagnosis Anxiety and depression(Discharge Diagnosis) - 02/28/20 Attending Physician: Alyssa Rosa NP Allergies, Adverse [...] 2[facility] Note: [facility] 3Location History: &[facility] 4Admin Note: [facility] 5Admin Note: Left arm. - Dr. Elias Galanin Note: [facility] Medications hydrOXYzine hydrochloride 50 mg oral tablet 1 tablet = 50 mg, By Mouth, 4 times a day, PRN for anxiety, for 30 days, # 90 tablet, 2 Refills, Acute 05/28/20 15:36:00 EDT, 02/28/20 15:36:00 EDT, Tablet, [facility], 159, cm, 02/28/20 15:09:00 EDT, Height Start Date: 02/28/20 Stop Date: 05/28/20 Status: Ordered methadone 5 mg/5 mL oral [...] Effective Dates Health Status Clinical Service Informant Anxiety and depression Discharge Diagnosis 02/28/20 Vital Signs Most recent to oldest [Reference Range]: 1 Height 159 cm (02/28/20 3:09 PM) Social History Social History Type Response Tobacco Use: 4 or less cigar ettes(less than 1/4 pack)/day in last 30 days. Sex
--- OUTSIDE RECORDS SUMMARY | 2023-01-06 00:33 | XMS_ITS | Continuity of Care Document ---
Author Name Unknown Organization [facility] Adult Address [address] [place] [address]- Care Team Providers Care Human Resources Project Manager Name Role Phone Shelley MCGEE, Alyssa Miranda Primary Care Physician Encounter [facility] Date(s): 09/06/20 - 09/13/20 [facility] Adult [address] [place] [address]- Attending Physician: Alyssa Rosa NP Allergies, Adverse [...] 2[facility] Note[facility] 3[facility] History: [facility] 4Admin Note: [facility] 5Admin Note: Left [...]
--- OUTSIDE RECORDS SUMMARY | 2023-01-06 00:33 | XMS_ITS | Continuity of Care Document ---
Author Name Unknown Organization [facility] Adult Address [address] [place] [address]- Care Team Providers Care Resource Forester Name Role Phone Shelley MCGEE, Alyssa Miranda Primary Care Physician Encounter [facility] Date(s): 10/09/19 - 11/09/19 [facility] Adult [address] [place] [address]- [facility] Attending Physician: Alyssa Rosa NP Allergies, Adverse [...] 2Admin Note[facility] 3[facility] History: [facility] 4Admin Note: [facility] 5Admin Note: Left [...] Type: Cigarettes; Tobacco use times per day: 2 ppd; entered on: 10/22/16 Sex
--- NOTE | 2023-01-06 01:32 | PC.NURSE ---
Pt A&O to self, place and year, calm and cooperative, states I am here to get my finger checked out because I fell and broke it . Pt has moments where she A&O and then asking for Lashon and other names. IV line established, blood work collected and sent to lab. CIWA score 10, meds given as documented. Pt getting up from stretcher, wandering the halls, easy redirection. Pt had an episode of going into the BR and walking into the [facility] with no pants. 1:[address]
[2023-01-06] MEDS: Magnesium Sulfate/H2O 2 GM/50 ML PIGGYBACK IV (04:58)
--- NOTE | 2023-01-06 08:13 | MHC.CARE ---
Aurora from [facility] calls CARE Team regarding this pt.? Aurora advises CARE Team that they received this pt?s ED notes and that upon review by their nursing team; they have determined that pt cannot, at this time, return to [facility].? MV expressed concerns that they could not effectively care for pt in her present state which remains altered. ED acetylene cutter made aware.
--- NOTE | 2023-01-06 08:41 | PC.NURSE ---
PT AWAKE AND ALERT. ORIENTED X 4. REQUESTING WATER. OOB TO BR, STEADY ON FEET.
--- NOTE | 2023-01-06 11:59 | MHC.RECOVSUP ---
Met with pt in ED4 for potential ATS. Pt i not interested in ATS at this time and would like to go home and [facility]W provided pt with recovery resources. Pt has no questions or concerns at this time.
--- NOTE | 2023-01-06 12:24 | MHC.RECOVRN ---
Spoke with DORETHA Gonzalez at [facility]. Pt last received split dose methadone on 01/05, 60 mg at 0815 and 55 mg at 1700. Pt had been receiving split dose due to being on [facility] protocol, does not normally receive split dose. RN aware.
--- NOTE | 2023-01-06 12:27 | ED.GENADULT ---
HPI - General Adult General Chief complaint: General Medical Stated complaint: SHAKING Time Seen by Provider: 01/05/23 22:45 Source: patient Mode of arrival: EMS Limitations: no limitations Related Data Allergies Allergy/AdvReac Type Severity Reaction Status Date / Time acetaminophen [From Tylenol] Allergy Hives Verified 01/05/23 23:19 aspirin Allergy Anaphylaxis Verified 01/05/23 23:17 buprenorphine [From Suboxone] Allergy Swelling Verified 01/05/23 23:18 ibuprofen Allergy Hives Verified 01/05/23 23:19 naloxone [From Suboxone] Allergy Swelling Verified 01/05/23 23:18 naltrexone [From Vivitrol] Allergy Angioedema Verified 01/05/23 23:19 PMFSH Social History Social History Advance Directives: No Advance Directives Information Provided: Yes Physical Exam ED Vital Signs: Vital Signs - 24 hr 01/05/23 22:48 01/06/23 00:21 01/06/23 01:51 Temperature 99.4 F Pulse Rate 97 91 Respiratory Rate 18 18 18 Blood Pressure 130/88 148/101 H Pulse Oximetry 95 95 Oxygen Delivery Method Room Air Room Air 01/06/23 02:48 01/06/23 05:12 01/06/23 07:08 Temperature 99.3 F 98.8 F Pulse Rate 89 78 70 Respiratory Rate 18 17 20 Blood Pressure 122/86 120/79 131/84 Pulse Oximetry 94 92 94 Oxygen Delivery Method Room Air Room Air Room Air 01/06/23 12:00 Temperature Pulse Rate 89 Respiratory Rate 16 Blood Pressure 108/74 Pulse Oximetry 94 Oxygen Delivery Method Room Air BMI result Body Mass Index 21.1 Medications Administered Discontinued Medications Generic Name Dose Route Start Last Admin Trade Name Freq PRN Reason Stop Dose Admin Sodium Chloride 1,000 mls @ 999 mls/hr 01/05/23 23:05 01/06/23 00:40 Ns IV 01/06/23 00:05 Infused .Q1H1M ONE Infusion Magnesium Sulfate 2 gm in 50 mls @ 100 mls/hr 01/06/23 04:48 01/06/23 05:30 Magnesium Sulfate/H2o IV 01/06/23 05:17 Infused ONCE ONE Infusion Lorazepam 2 mg 01/05/23 23:05 01/05/23 23:32 Lorazepam 2 Mg/Ml Vial IVPUSH 01/05/23 23:06 2 mg ONCE ONE Administration Ondansetron HCl 4 mg 01/05/23 23:05 01/05/23 23:32 Ondansetron Hcl 4 Mg/2 Ml Vial IVPUSH 01/05/23 23:06 4 mg ONCE ONE Administration Medical Decision Making Medical Decision Making [facility] Narrative: 12:27. Patient care assumed on sign-out. She is on daily methadone, does confirm to 115 mg. Dose ordered for today. Continue to placement Lab Data 01/05/23 23:26 01/05/23 23:26 Labs: Lab Results 01/05/23 01/05/23 Range/Units 23:26 23:26 WBC 8.3 (4.8-10.8) X10*3/uL RBC 3.48 L (4.60-5.80) X10*6/uL Hgb 11.5 L (14.0-18.0) g/dl Hct 34.4 L (42.0-52.0) % MCV 98.9 H (80.0-98.0) fL MCH 33.0 (27.0-33.0) pg MCHC 33.4 (31.0-36.0) g/dl RDW 12.5 (11.0-16.0) % Plt Count 206 (160-400) X10*3/uL MPV 9.1 L (9.4-12.4) fL Immature Gran % (Auto) 0.6 H (0.0-0.4) % Neut % (Auto) 78.1 H (45-73) % Lymph % (Auto) 10.1 L (20-40) % [place] % (Auto) 9.6 (2-11) % Eos % (Auto) 1.1 (0-4) % Baso % (Auto) 0.5 (0-2) % Lymph # (Auto) 0.8 L (1.2-4.9) X10*3/uL [place] # (Auto) 0.8 (0.1-1.2) X10*3/uL Eos # (Auto) 0.1 (0.0-0.4) X10*3/uL Baso # (Auto) 0.0 (0.0-0.2) X10*3/uL Abs Immat Gran (auto) 0.05 H (0.00-0.03) X10*3/uL Absolute Neuts (auto) 6.5 (2.0-8.3) x10*3/uL Absolute Nucleated RBC 0.000 (0.0-0.012) X10*3/uL Nucleated RBC % (auto) 0.0 (0.0-0.2) /100WBC Sodium 136 (135-145) mmol/L Potassium 4.9 (3.3-5.1) mmol/L Chloride 98 (96-108) mmol/L Carbon Dioxide 30 H (22-29) mmol/L Anion Gap 13 (12-20) BUN 15 (9-16) mg/dL Creatinine 0.89 (0.5-1.4) mg/dL Estim Creat Clear Calc 71.3 Estimated GFR > 60 Random Glucose 85 (60-115) mg/dL Calcium 9.4 (8.4-10.2) mg/dL Magnesium 1.5 L (1.6-2.6) mg/dL Total Bilirubin 0.4 (0.0-1.0) mg/dL AST 19 (5-37) U/L ALT 12 (0-40) U/L Alkaline Phosphatase 116 (39-117) U/L Total Protein 6.3 L (6.5-8.0) g/dL Albumin 3.9 (3.5-5.0) g/dL Ethyl Alcohol < 10 mg/dL Discharge Plan Discharge Clinical Impression: Alcohol withdrawal Patient Disposition: Xfer Other Transfer Details: To detox center Instructions: Alcohol Withdrawal (ED) Additional Instructions: Continue lorazepam according to CIWA scale patient medically cleared to be placed in detox
--- NOTE | 2023-01-06 12:31 | HE.PHANOTE ---
Methadone verifcation Pharmacy has received the methadone verification from Alesha. Patient last received methadone 115 mg at [facility], confirmed with Lisa at the clinic. Alesha reported last dose given was 01/05/23. Jojo Smith, PharmD
[2023-01-06] MEDS: methADONE HCl 20 MG/2 ML ORAL.CONC 115 MG PO (12:51)
--- NOTE | 2023-01-06 13:00 | PC.NURSE ---
Patient given dose of Methadone that was verified by [facility]. Patient requested phone to be able to call her family which was provided to her. Patient relieved to get her dose of methadone as the clinic closes at 1330.
--- NOTE | 2023-01-06 13:53 | PC.NURSE ---
Patient resting on stretcher with eyes closed. Patient maintaining airway and breathing independently without difficulty.
== END 2023-01-06 13:52 | disposition other institution (70) ==
PROVIDERS: Internal Medicine; Emergency Provider Emergency Medicine
DX: F10.239 Alcohol dependence with withdrawal, unspecified (principal); Y90.0 Blood alcohol level of less than 20 mg/100 ml
CPT/HCPCS: 36415; 80053; 82077; 83735; 85025; 96361; 96365; 96375; 99284; J2060; J2405; J3475

== ENCOUNTER 2023-01-07 09:31 | Emergency (ER) | payer OTHER, SELFPAY ==
[2023-01-07 09:53] VITALS: BP 99/68; PULSE 100; RESP 16; TEMP 36.1; O2SAT 95; BMI 21.6
--- NOTE | 2023-01-07 10:22 | ED.MEDCLEAR ---
HPI - Medical Clearance General Chief complaint: Medical Clearance Stated complaint: Observation? Time Seen by Provider: 01/07/23 10:17 Source: patient Mode of arrival: ambulatory Limitations: no limitations History of Present Illness HPI Narrative: 57-year-old female with history of chronic pain on chronic methadone for the last several years, history of alcohol abuse and withdrawal who presents to the ER for the 3rd day in a row for concerns of alcohol withdrawal. She was discharged yesterday, declined going back to detox. She initially came from [facility] on 01/05 with concern for tremors and alcohol withdrawal. She was medically cleared to go back to detox but never did. She spent the night in the waiting room and presents back in today for tremors, nausea, sweats, pins and needles sensation that started a couple hours ago. She reports she usually drinks 1.5 pints of 100 proof vodka. Last drink was prior to going to [facility] on WednesdayJanuary 03. She denies illicit drug use. She has chronic pain and has been on methadone for years. History of several back and neck surgeries. MD complaint: medical clearance requested Reason for Medical Clearance: other (alcohol abuse and dependence) Alleged Intoxication: No Compliant with Home Medications: Yes Traumatic Symptoms: denies traumatic injury Associated Symptoms: diaphoresis, fever/chills, nausea/vomiting, weakness and other (tremor) Treatments Prior to Arrival: none Related Information Allergies Allergy/AdvReac Type Severity Reaction Status Date / Time acetaminophen [From Tylenol] Allergy Hives Verified 01/07/23 09:56 aspirin Allergy Anaphylaxis Verified 01/07/23 09:56 buprenorphine [From Suboxone] Allergy Swelling Verified 01/07/23 09:56 ibuprofen Allergy Hives Verified 01/07/23 09:56 naloxone [From Suboxone] Allergy Swelling Verified 01/07/23 09:56 naltrexone [From Vivitrol] Allergy Angioedema Verified 01/07/23 09:56 Review of Systems Review of Systems: Yes all other systems are reviewed and are negative PMFSH Social History Social History Advance Directives: No Physical Exam Vital Signs: Vital Signs: Last Vital Signs Temp 97.8 F 01/07/23 14:49 Pulse 75 01/07/23 16:37 Resp 16 01/07/23 16:37 BP 112/73 01/07/23 16:37 Pulse Ox 97 01/07/23 16:37 O2 Del Method Room Air 01/07/23 16:37 BMI result Body Mass Index 21.6 Appearance: Alert. Oriented X3. Tremulous in her hands and upper extremities. Head: normocephalic, atraumatic. Eyes: Pupils equal, round and reactive to light. ENT: Pharynx normal. No tonsillar swelling or exudate. Neck: Normal inspection. Neck supple. well healed anterior surgical scars CVS: Normal heart rate and rhythm. Pulses normal. Respiratory: No respiratory distress. Breath sounds normal. Abdomen: Soft and nontender. +BS x4 Skin: Skin warm and dry. Normal skin color. Normal skin turgor. No rashes. Extremities: No lower extremity edema. No joint swelling. Neuro/psych: Oriented X 3. No motor deficit. No sensory deficit. CN II-XII intact. Normal speech and cognition. +UE tremors. Course Reevaluation(s) Reevaluation #1: Spoke w/ Em from [facility] - patient reportedly declined services yesterday. will need to be a new bed search today. labs and tox ordered. CIWA 6 - ativan ordered. will reassess and monitor closely. Time: 11:17 Reevaluation #2: Labs are unremarkable. Will place patient physician observation at this time. Patient is awaiting a new detox bed placement. Time: 11:33 Reevaluation #3: Patient with recurrent tremor. PO ativan 1mg ordered - was somnolent with 2mg earlier. Will continue to follow up with Recovery team re: placement to detox Time: 18:22 Consultations Consultation #1: Recovery team Medications Administered Discontinued Medications Generic Name Dose Route Start Last Admin Trade Name Augustin PRN Reason Stop Dose Admin Lorazepam 2 mg 01/07/23 10:35 01/07/23 11:14 Lorazepam 1 Mg Tablet PO 01/07/23 10:36 2 mg ONCE ONE Administration Methadone HCl 115 mg 01/07/23 10:35 01/07/23 11:13 Methadone Hcl 20 Mg/2 Ml Oral.Conc PO 01/07/23 10:36 115 mg ONCE ONE Administration Medical Decision Making Medical Decision Making MDM Narrative: 57 y/o female with history of ETOH abuse/dependence, chronic pain on methadone presenting to the ER for the 3rd day in a row with ETOH d/w smptoms. CIWA 6 on arrival. Given PO ativan and her methadone dose. CIWA improved to 2. Recovery team on board and attempting to find placement. Not accepted ar [facility] due to last drink being on the . No beds at [facility] today so search broadened to [place]. Patient eating well, symptoms improved. Will continue montior. Differential Diagnosis Differential Diagnoses: The differential diagnosis associated with the presentation includes Acute alcohol withdrawal, opiate withdrawal, polysubstance abuse, Admission/Observation Consideration of admission/observation: Escalation of care including admission/observation considered 3rd presentation to the emergency room for withdrawal Consult Healthcare Provider Management of the patient was discussed with: Controls Designer Leeanna & Lito from [facility] Lab Data [facility] Lab Attestation statement: I reviewed the patient's lab results. 01/07/23 10:50 01/07/23 10:50 Labs: Lab Results 01/07/23 01/07/23 01/07/23 Range/Units 10:49 10:49 10:50 WBC 9.6 (4.8-10.8) X10*3/uL RBC 3.58 L (4.20-5.50) X10*6/uL Hgb 11.5 L (12.0-16.0) g/dl Hct 36.2 L (37.0-47.0) % MCV 101.1 H (80.0-98.0) fL MCH 32.1 (27.0-33.0) pg MCHC 31.8 (31.0-35.0) g/dl RDW 12.6 (11.0-16.0) % Plt Count 248 (160-400) X10*3/uL MPV 9.1 L (9.4-12.3) fL Immature Gran % (Auto) 0.4 (0.0-0.4) % Neut % (Auto) 81.8 H (45-73) % Lymph % (Auto) 6.4 L (20-40) % [place] % (Auto) 10.2 (2-11) % Eos % (Auto) 0.8 (0-4) % Baso % (Auto) 0.4 (0-2) % Lymph # (Auto) 0.6 L (1.2-4.9) X10*3/uL [place] # (Auto) 1.0 (0.1-1.2) X10*3/uL Eos # (Auto) 0.1 (0.0-0.4) X10*3/uL Baso # (Auto) 0.0 (0.0-0.2) X10*3/uL Abs Immat Gran (auto) 0.04 H (0.00-0.03) X10*3/uL Absolute Neuts (auto) 7.8 (2.0-8.3) x10*3/uL Absolute Nucleated RBC 0.000 (0.0-0.012) X10*3/uL Nucleated RBC % (auto) 0.0 (0.0-0.2) /100WBC Sodium (135-145) mmol/L Potassium (3.3-5.1) mmol/L Chloride (96-108) mmol/L Carbon Dioxide (22-29) mmol/L Anion Gap (12-20) BUN (9-16) mg/dL Creatinine (0.5-1.4) mg/dL Estim Creat Clear Calc Estimated GFR Random Glucose (60-115) mg/dL Calcium (8.4-10.2) mg/dL Magnesium (1.6-2.6) mg/dL Total Bilirubin (0.0-1.0) mg/dL Direct Bilirubin (0.0-0.5) mg/dL AST (5-31) U/L ALT (0-31) U/L Alkaline Phosphatase (39-117) U/L Total Protein (6.5-8.0) g/dL Albumin (3.5-5.0) g/dL Lipase (8-78) U/L Urine Color Dark Yellow Urine Appearance Clear Urine pH 7.0 (5.0-9.0) Ur Specific [place] 1.025 (1.005-1.025) Urine Protein Trace (Neg-Trace) mg/dL Urine Glucose (UA) Negative (Negative) mg/dL Urine Ketones Trace (Negative) mg/dL Urine Blood Negative (Negative) Urine Nitrite Negative (Negative) Ur Leukocyte Esterase Moderate (2+) H (Negative) Urine RBC 0-2 (0-2) /HPF Urine WBC 0-5 (0-5) /HPF Ur Squamous Epith Cells 0-2 (0-2) /HPF Urine Bacteria None Seen (None Seen) Hyaline Casts 0-2 (0-2) /LPF Urine Opiates Screen Not Detected (Not Detect) Urine Fentanyl Screen Not Detected (Not Detect) Ur Barbiturates Screen Not Detected (Not Detect) Ur Phencyclidine Scrn Not Detected (Not Detect) Ur Amphetamines Screen Not Detected (Not Detect) U Benzodiazepines Scrn Not Detected (Not Detect) Urine Cocaine Screen Not Detected (Not Detect) U Marijuana (THC) Screen Not Detected (Not Detect) Ethyl Alcohol mg/dL COVID-19 (IRENE) (Negative) COVID-19 Clin Com 01/07/23 01/07/23 01/07/23 Range/Units 10:50 10:50 10:50 WBC (4.8-10.8) X10*3/uL RBC (4.20-5.50) X10*6/uL Hgb (12.0-16.0) g/dl Hct (37.0-47.0) % MCV (80.0-98.0) fL MCH (27.0-33.0) pg MCHC (31.0-35.0) g/dl RDW (11.0-16.0) % Plt Count (160-400) X10*3/uL MPV (9.4-12.3) fL Immature Gran % (Auto) (0.0-0.4) % Neut % (Auto) (45-73) % Lymph % (Auto) (20-40) % [place] % (Auto) (2-11) % Eos % (Auto) (0-4) % Baso % (Auto) (0-2) % Lymph # (Auto) (1.2-4.9) X10*3/uL [place] # (Auto) (0.1-1.2) X10*3/uL Eos # (Auto) (0.0-0.4) X10*3/uL Baso # (Auto) (0.0-0.2) X10*3/uL Abs Immat Gran (auto) (0.00-0.03) X10*3/uL Absolute Neuts (auto) (2.0-8.3) x10*3/uL Absolute Nucleated RBC (0.0-0.012) X10*3/uL Nucleated RBC % (auto) (0.0-0.2) /100WBC Sodium 139 (135-145) mmol/L Potassium 4.0 (3.3-5.1) mmol/L Chloride 100 (96-108) mmol/L Carbon Dioxide 32 H (22-29) mmol/L Anion Gap 11 L (12-20) BUN 12 (9-16) mg/dL Creatinine 0.73 (0.5-1.4) mg/dL Estim Creat Clear Calc 69.4 Estimated GFR > 60 Random Glucose 121 H (60-115) mg/dL Calcium 8.8 D (8.4-10.2) mg/dL Magnesium 2.0 (1.6-2.6) mg/dL Total Bilirubin 0.6 (0.0-1.0) mg/dL Direct Bilirubin 0.2 (0.0-0.5) mg/dL AST 18 (5-31) U/L ALT 11 (0-31) U/L Alkaline Phosphatase 106 (39-117) U/L Total Protein 6.4 L (6.5-8.0) g/dL Albumin 4.0 (3.5-5.0) g/dL Lipase 22 (8-78) U/L Urine Color Urine Appearance Urine pH (5.0-9.0) Ur Specific [place] (1.005-1.025) Urine Protein (Neg-Trace) mg/dL Urine Glucose (UA) (Negative) mg/dL Urine Ketones (Negative) mg/dL Urine Blood (Negative) Urine Nitrite (Negative) Ur Leukocyte Esterase (Negative) Urine RBC (0-2) /HPF Urine WBC (0-5) /HPF Ur Squamous Epith Cells (0-2) /HPF Urine Bacteria (None Seen) Hyaline Casts (0-2) /LPF Urine Opiates Screen (Not Detect) Urine Fentanyl Screen (Not Detect) Ur Barbiturates Screen (Not Detect) Ur Phencyclidine Scrn (Not Detect) Ur Amphetamines Screen (Not Detect) U Benzodiazepines Scrn (Not Detect) Urine Cocaine Screen (Not Detect) U Marijuana (THC) Screen (Not Detect) Ethyl Alcohol < 10 mg/dL COVID-19 (IRENE) Negative (Negative) COVID-19 Clin Com See Note External Record Review External record reviewed: Outpatient record, Prior outpatient labs and Prior outpatient radiology Prescription Management I considered prescription management with: Other (benzodiazepines ) Chronic Conditions Patient?s care impacted by: Other (ETOH abuse and chronic pain syndrome ) Social Determinants Patient?s care significantly limited by Social Determinants of Health including: Alcoholism and drug addiction in family Discharge Plan Discharge Clinical Impression: Alcohol withdrawal Patient Disposition: Still a Patient
--- NOTE | 2023-01-07 10:55 | HE.PHANOTE ---
RE: methadone Pt here yesterday 01/06/23 and received dose of 115mg; previous note from pharmacy states last dose of 115mg from [facility] 01/05/23
[2023-01-07 11:02] LABS: MANUAL DIFF FLAG NO
[2023-01-07 11:04] LABS: Basophils Percent Auto 0.4 % (0-2); Eosinophils Absolute Auto 0.1 X10*3/uL (0.0-0.4); Eosinophils Percent Auto 0.8 % (0-4); Hematocrit 36.2 % (37.0-47.0); Hemoglobin 11.5 g/dl (12.0-16.0); Imm Gran Abs Auto 0.04 X10*3/uL (0.00-0.03); Imm Gran Pct Auto 0.4 % (0.0-0.4); Lymphocytes Absolute Auto 0.6 X10*3/uL (1.2-4.9); Lymphocytes Percent Auto 6.4 % (20-40); Mean Corpuscular HGB Conc 31.8 g/dl (31.0-35.0); Mean Corpuscular Hemoglobin 32.1 pg (27.0-33.0); Mean Corpuscular Volume 101.1 fL (80.0-98.0); Mean Platelet Volume 9.1 fL (9.4-12.3); Monocytes Percent Auto 10.2 % (2-11); Neutrophils Absolute Auto 7.8 x10*3/uL (2.0-8.3); Neutrophils Percent Auto 81.8 % (45-73); Platelet Count 248 X10*3/uL (160-400); Red Blood Count 3.58 X10*6/uL (4.20-5.50); Red Cell Distribution Width 12.6 % (11.0-16.0); White Blood Count 9.6 X10*3/uL (4.8-10.8)
[2023-01-07 11:05] LABS: Appearance Urine Clear; Color Urine Dark Yellow; Glucose Urine UA Negative (Negative); Leukocyte Esterase Urine Moderate (2+) (Negative); Nitrite Urine Negative (Negative); Specific Gravity - Urine 1.025 (1.005-1.025); UMIC TRIGGER UACC YES; Urine Blood Negative (Negative); Urine Ketones Trace mg/dL (Negative); Urine Protein Trace mg/dL (Neg-Trace)
[2023-01-07] MEDS: methADONE HCl 20 MG/2 ML ORAL.CONC 115 MG PO (11:13)
[2023-01-07 11:14] LABS: Amphetamine Screen Urine Not Detected (Not Detect); Bacteria Urine None Seen (None Seen); Barbiturates, Urine Not Detected (Not Detect); Benzodiazepines Screen Urine Not Detected (Not Detect); Cannabinoid Screen Urine Not Detected (Not Detect); Cocaine Screen Urine Not Detected (Not Detect); Fentanyl, urine Not Detected (Not Detect); Hyaline Casts Urine 0-2 /LPF (0-2); Opiate Screen Urine Not Detected (Not Detect); Phencyclidine Screen Urine Not Detected (Not Detect); RBC Urine 0-2 /HPF (0-2); Squamous Epithelial Cell Urine 0-2 /HPF (0-2); WBC Urine 0-5 /HPF (0-5)
[2023-01-07] MEDS: LORazepam 1 MG TABLET 2 MG PO ×2 (11:14→22:04)
--- NOTE | 2023-01-07 11:19 | PC.NURSE ---
pt medicated per NOV methadone 115, ativan 2mg- CIWA 6 at this time. pt resting comfortably call sotomayor within reach
[2023-01-07 11:21] LABS: Alanine Aminotransferase 11 U/L (0-31); Alkaline Phosphatase 106 U/L (39-117); Anion Gap 11 (12-20); Aspartate Amino Transferase 18 U/L (5-31); Bilirubin Direct 0.2 mg/dL (0.0-0.5); Bilirubin Total 0.6 mg/dL (0.0-1.0); Blood Urea Nitrogen 12 mg/dL (9-16); Calcium 8.8 mg/dL (8.4-10.2); Carbon Dioxide 32 mmol/L (22-29); Chloride 100 mmol/L (96-108); Creatinine Clr Calc Pharmacy 69.4; Estimated Glomerular Filt Rate > 60; Glucose Random 121 mg/dL (60-115); Lipase 22 U/L (8-78); Sodium 139 mmol/L (135-145); Total Protein 6.4 g/dL (6.5-8.0)
[2023-01-07 11:25] LABS: Ethanol < 10 mg/dL
[2023-01-07 11:28] LABS: COVID-19 Test Negative (Negative); IDNOW Serial# BCCEAD1C
--- NOTE | 2023-01-07 14:43 | PC.NURSE ---
this nurse rounded on
--- NOTE | 2023-01-07 14:45 | PC.NURSE ---
this nurse rounded on patient, pt observed sleeping, rise and fall of chest noted, no increased work of breathing, occasional snoring- call sotom[facility]or within reach pending dispo to detox if space allows [facility]
[2023-01-07 14:49] VITALS: BP 113/70; PULSE 78; RESP 16; TEMP 36.6; O2SAT 97
--- NOTE | 2023-01-07 14:52 | MHC.RECOVSUP ---
Pt requesting detox, reporting her last drink was on 01/03/23. Pt reports drinking 1 pint and 6-9 beers a day. [facility] declined pt, referral sent to [facility] waiting to hear back.
[2023-01-07 16:37] VITALS: BP 112/73; PULSE 75; RESP 16; O2SAT 97
--- NOTE | 2023-01-07 16:47 | PC.NURSE ---
pt roused easily to name- CIWA completed, offered pt something to eat/drink, pt agreed pt now sitting upright eating sandwich call sotomayor within reach [facility]
--- NOTE | 2023-01-07 18:12 | MHC.RECOVSUP ---
[facility] currently [facility] no beds asked to check tomorrow. [facility] has no beds available.
--- NOTE | 2023-01-07 18:23 | PC.NURSE ---
rounded on pt, pt tremor noted to have increased in intesnsirty at this time, provider aware, awaiting new orders
[2023-01-07] MEDS: LORazepam 1 MG TABLET PO (18:30)
--- NOTE | 2023-01-07 19:50 | PC.NURSE ---
pt oob to BR independently pt requests ice cream, sts that her appetite is improving pt awaiting detox placement
[2023-01-07] MEDS: chlordiazePOXIDE HCl 25 MG CAPSULE PO (22:04)
--- NOTE | 2023-01-07 22:32 | PC.NURSE ---
pt CIWA 8 at this time- MD Miguel notified- pt medicated per new orders, Librium 25mg and lorazepam 2mg. pt given warm blanket, call sotom[facility]or within reach [facility]
--- NOTE | 2023-01-07 22:34 | PC.NURSE ---
alerted by registration pt was in [facility]. redirected back to room.
--- NOTE | 2023-01-07 22:52 | PC.NURSE ---
charge nurse aware pt will be awaiting detox bed overnight, plan is to move pt to main ED.
[2023-01-07 23:43] VITALS: BP 106/66; PULSE 92; RESP 17; TEMP 37.4; O2SAT 94
[2023-01-08 00:13] LABS: Glucose, Whole Blood 153 mg/dL (60-115)
[2023-01-08 06:15] VITALS: BP 101/67; PULSE 93; RESP 17; TEMP 37.4; O2SAT 96
[2023-01-08] MEDS: LORazepam 1 MG TABLET PO (07:15)
[2023-01-08] MEDS: methADONE HCl 20 MG/2 ML ORAL.CONC 115 MG PO (07:15)
[2023-01-08 07:17] VITALS: BP 98/72; PULSE 89; RESP 20; TEMP 37.1; O2SAT 90
--- NOTE | 2023-01-08 07:23 | PC.NURSE ---
pt AOx3, resting in no apparent distress. medicated per MAR, tremor noted in both hands, will cont to monitor
--- NOTE | 2023-01-08 07:24 | PC.NURSE ---
pt O2 sat hovers around 90-93 % room air, denies SOB or respiratory hx
[2023-01-08 08:29] VITALS: BP 95/63; PULSE 80; RESP 20; TEMP 37.4; O2SAT 93
--- NOTE | 2023-01-08 10:53 | MHC.RECOVRN ---
Pt had been looking to go to [facility], however, no female beds available. Pt aware that she has been accepted and should continue to call from home for bed availability. Denies questions or concerns. RN and provider aware.
[2023-01-08 12:15] VITALS: BP 105/63; PULSE 90; RESP 20; O2SAT 93
== END 2023-01-08 12:24 | disposition home or self-care (01) ==
PROVIDERS: Physician Assistant; Emergency Provider Emergency Medicine; PCP Nurse Practitioner Gerontology
DX: F10.139 Alcohol abuse with withdrawal, unspecified (principal); Y90.0 Blood alcohol level of less than 20 mg/100 ml; R25.1 Tremor, unspecified; R11.0 Nausea; Z20.822 Contact with and (suspected) exposure to COVID-19; Z79.899 Other long term (current) drug therapy; Z20.828 Contact with and (suspected) exposure to other viral communicable diseases
CPT/HCPCS: 36415; 80048; 80076; 80307; 81001; 82077; 82947; 83690; 83735; 85025; 87635; 99284